=== PATIENT | female | born 1940 | race Caucasian/White ===

== ENCOUNTER → 2016-09-28 | Outpatient (CLI) | payer BC | LOC: BMCIMAGING 07:55 | PROVIDERS: ATTEND Physician Assistant | DX: R10.11 Right upper quadrant pain (principal); K82.4 Cholesterolosis of gallbladder ==

== ENCOUNTER → 2016-10-12 | Outpatient (CLI) | payer BC | LOC: FIMAGING 09:59 | PROVIDERS: ATTEND Physician Assistant | DX: R10.11 Right upper quadrant pain (principal) | CPT/HCPCS: 78227; A9537 ==

== ENCOUNTER → 2017-02-06 | Outpatient (CLI) | payer BC | LOC: FIMAGING 10:41 | PROVIDERS: ATTEND Internal Medicine Hematology & Oncology | DX: Z13.820 Encounter for screening for osteoporosis (principal); M85.80 Other specified disorders of bone density and structure, unspecified site; E07.9 Disorder of thyroid, unspecified; Z78.0 Asymptomatic menopausal state; Z82.62 Family history of osteoporosis; Z79.899 Other long term (current) drug therapy ==

== ENCOUNTER → 2018-01-30 | Outpatient (CLI) | payer BC | LOC: BMCIMAGING 10:03 | PROVIDERS: ATTEND Orthopaedic Surgery | DX: M25.761 Osteophyte, right knee (principal); M25.762 Osteophyte, left knee ==

== ENCOUNTER → 2018-02-05 | Outpatient (CLI) | payer BC | LOC: FIMAGING 08:35 | PROVIDERS: ATTEND Orthopaedic Surgery | DX: Z01.818 Encounter for other preprocedural examination (principal); M17.11 Unilateral primary osteoarthritis, right knee ==

== ENCOUNTER 2018-02-21 12:15 | Inpatient (IN) | payer OTHER, BC ==
[2018-02-28] MEDS ORDERED: ROPIVACAINE 0.2% 80 MG, EPINEPHrine 0.2 MG, KETOROLAC TROMETHAMINE 30 MG, morphINE 10 M... IU ONE (06:00)
[2018-02-28] MEDS ORDERED: TRANEXAMIC ACID 1,000 MG in NS 100 ML IV ONE (06:00)
--- NOTE | 2018-02-28 06:17 | PDHPUP ---
History & Physical Update H&P update statement: This history and physical update is based on an assessment of the patient which was completed after admission or registration (within 24 hours), but prior to the surgery/procedure. H&P update: no change in patient's condition since H&P completed
--- NOTE | 2018-02-28 06:17 | PDIAF ---
- Diagnosis Diagnosis: right knee djd Code Status: Full Code - Medication Management Discharge Medications: Medications to Continue on Transfer Acetaminophen [Tylenol ES 500 mg (*)] PRN PRN 10/03/12 [Last Taken 10/16/12 500] Aspirin EC [Aspirin EC 325 mg (*)] DAILY 10/03/12 [Last Taken 01/05/16] Cholecalciferol Vit D3 [Vitamin D3 (*)] DAILY 10/03/12 [Last Taken 01/05/16] Levothyroxine [Synthroid 50 mcg (*)] DAILY06 10/03/12 [Last Taken 01/05/16] Losartan/Hydrochlorothiazide [Losartan-Hctz 100-25 mg Tab] DAILY 10/03/12 [Last Taken 01/05/16] clonazePAM [klonoPIN (*)] DAILY 10/03/12 [Last Taken 01/05/16] Potassium Chloride [K-Tab ER] DAILY 01/06/16 [Last Taken 01/05/16] Amlodipine Besylate DAILY 02/20/18 [Last Taken Unknown] Atorvastatin Calcium DAILY 02/20/18 [Last Taken Unknown] Omeprazole DAILY 02/20/18 [Last Taken Unknown] Discharge Medications: Refer to the Discharge Home Medication list for PRN reason. - Orders Services needed: Home Care, Physical Therapy Home Care Face to Face: I certify that this patient was under my care and that I had the required [id number] encounter meeting the encounter requirements on the discharge day. My findings support the fact that the patient is homebound as defined in Home Care Face to Face Continued: CMS Chapter 7 Medicare Benefits Manual 30.1.1 , The condition of the patient is such that there exists a normal inability to leave home and consequently, leaving home would require a considerable and taxing effort. Diet Recommendation: no restrictions on diet Diet Texture: Regular Texture Diet Additional Instructions: TOTAL JOINT ARTHROPLASTY DISCHARGE INSTRUCTIONS 1. Your surgeon follows the [facility] protocol for reducing your risk of DVT (blood clots) following surgery. Medication will be ordered to prevent blood clots. A sudden increase in calf pain and/or swelling could indicate a blood clot in your leg. If this occurs, please call your surgeon or his/her assistant property manager. An ultrasound of the leg may be necessary to diagnose a blood clot. If you have conditions that make you a higher risk for blood clots, your surgeon may use more aggressive ways to prevent them. Notify your surgeon if you think you are a high risk for blood clots. 2. Wear your white surgical stockings (TEREZA hose) for 2 weeks. This decreases your swelling and may help prevent blood clots. It is ok to remove TEREZA hose at night time to give your legs a break. 3. Swelling and bruising in the surgical leg is common. If you feel that it is excessive, please notify your surgeon. 4. Elevate your surgical leg with the ankle above the hip several times every day. Please keep the leg straight when you elevate by putting pillows under your foot. Do not put pillows under your knee. This will make being able to fully straighten more difficult. This is uncomfortable, but try to do it as much as possible. 5. For total knee replacements use compressive wrap on your knee for 3-5 days after surgery, then you can discontinue it. 6. Use a walker or crutches for 1-2 weeks. Progress your weight-bearing as tolerated. You may start to use a cane when you feel stable and safe. 7. You will receive physical therapy instructions in the hospital. Continue those exercises at home. There are additional exercises in the total joint booklet you were given before surgery. Outpatient physical therapy will begin 7- 10 days after surgery. Please schedule this in advance. 8. Use ice on your knee at least 3-5 times every day for 30 minutes. This helps reduce pain and swelling. Also use it at night before falling asleep. 9. Leave your surgical dressing in place for 2 weeks. Your dressing is water resistant, but not waterproof. Cover it with Saran Wrap or Dinod-p-Lucv before showering. You may shower as soon as you feel safe entering a shower. If you notice bleeding from your incision 2 or 3 days after surgery, please notify your surgeon. 10. Due to narcotics, decreased activity and altered diet, most patients experience constipation after surgery. Use gzrt-[id number] stool softeners while you are on narcotics. 11. You may drive a car when you are comfortable bearing weight, have good muscular control of your leg and are off narcotics. This usually occurs 2-4 weeks after surgery, depending on which leg was operated on. 12. If there are questions not addressed here, please refer the [facility] book given for more information. If you still have questions, please contact your surgeon s office. 13. If you have a life-threatening emergency, please call 911 and go to the emergency room immediately. For non-life threatening emergencies, please call your physicians office for advice before going to the emergency room. - Follow Up Care Current Providers and Referrals: Steve Puente MD [Medical Doctor] - Rui Gonzalez MD [Primary Care Provider] -
[2018-02-28] MEDS ORDERED: ceFAZolin 2 GM/DEXTROSE 100 ML IV ONE (09:24)
[2018-02-28] MEDS ORDERED: FAMOTIDINE 20 MG TAB PO ONE (09:24)
[2018-02-28] MEDS ORDERED: ACETAMINOPHEN 325 MG TAB PO ONE (09:24)
[2018-02-28] MEDS ORDERED: LR 1,000 ML IV ONE (09:46)
[2018-02-28] MEDS ORDERED: THROMBIN (BOVINE) 5,000 UNIT VIAL TP ONE ×2 (10:59→11:18)
[2018-02-28] MEDS ORDERED: CALCIUM CHLORIDE 1 GM/10 ML INJ ONE ×2 (11:00→11:18)
[2018-02-28] MEDS ORDERED: ceFAZolin 1 GM/5 ML SYR ONE (11:19)
--- NOTE | 2018-02-28 11:33 | PDANEPAE ---
ANE Past Medical History - Cardiovascular History Hx Hypertension: Yes Hx Arrhythmias: No Hx Chest Pain: No Hx Coronary Artery / Peripheral Vascular Disease: No Hx CHF / Valvular Disease: No Hx Palpitations: Yes Cardiovascular History Comment: LBBB - Pulmonary History Hx COPD: No Hx Asthma/Reactive Airway Disease: No Hx Recent Upper Respiratory Infection: No Hx Oxygen in Use at Home: No Hx Sleep Apnea: No Sleep Apnea Screening Result - Last Documented: Negative - Neurologic History Hx Cerebrovascular Accident: No Hx Seizures: No Hx Dementia: No - Endocrine History Hx Diabetes: No Obesity: moderate Endocrine History Comment: hypothyroid - Renal History Hx Renal Disorders: No - Liver History Hx Hepatic Disorders: No Hepatic History Comment: hyoactive galbladder - Neurological & Psychiatric Hx Hx Neurological and Psychiatric Disorders: Yes Neurological / Psychiatric History Comment: anxiety - Cancer History Hx Cancer: Yes Cancer History Comment: breast CA, 2013. melanoma removal - Congenital Disorder History Hx Congenital Disorders: No - GI History GERD: mild Hx Gastrointestinal Disorders: Yes Gastrointestinal History Comment: GERD - Other Health History Other Health History: wears glasses. bilateral hearing aids. states slight balance problem. gets rosacea on forehead - Chronic Pain History Chronic Pain: Yes (legs, knees) - Surgical History Prior Surgeries: bilateral mastectomys, left side lymph node removal. rotator cuff repair right. arthroscopy right knee. right foot/ankle surgery w/ plating. optical tumor removal. tonsillectomy ANE Review of Systems Review of Systems: - Exercise capacity METS (RN): 3 METS ANE Patient History - Allergies Allergies/Adverse Reactions: Sulfa (Sulfonamide Antibiotics) Allergy (Verified 02/20/18 15:18) Hives - Home Medications Home medications: home medication list seen and reviewed Home Medications: Acetaminophen [Tylenol ES 500 mg (*)] PRN PRN 10/03/12 [Last Taken 02/28/18 06: 00] Aspirin EC [Aspirin EC 325 mg (*)] DAILY 10/03/12 [Last Taken 02/27/18] Cholecalciferol Vit D3 [Vitamin D3 (*)] DAILY 10/03/12 [Last Taken 02/27/18] Levothyroxine [Synthroid 50 mcg (*)] DAILY06 10/03/12 [Last Taken 02/28/18 06:00 ] Losartan/Hydrochlorothiazide [Losartan-Hctz 100-25 mg Tab] DAILY 10/03/12 [Last Taken 02/27/18] clonazePAM [klonoPIN (*)] DAILY 10/03/12 [Last Taken 02/28/18 06:00] Potassium Chloride [K-Tab ER] DAILY 01/06/16 [Last Taken 02/28/18 06:00] Amlodipine Besylate DAILY 02/20/18 [Last Taken 02/28/18 06:00] Atorvastatin Calcium DAILY 02/20/18 [Last Taken 02/28/18 06:00] Omeprazole DAILY 02/20/18 [Last Taken 02/28/18 06:00] - NPO status NPO Status: no food or drink >8 hours NPO Since - Liquids (Date): 02/28/18 NPO Since - Liquids (Time): 06:00 NPO Since - Solids (Date): 02/27/18 NPO Since - Solids (Time): 18:00 - Anes Hx Anes Hx: no prior problems - Smoking Hx Smoking Status: Never smoked - Family Anes Hx Family Hx Anesthesia Complications: none ANE Labs/Vital Signs - Vital Signs Blood Pressure: 128/65 Heart Rate: 66 Respiratory Rate: 23 O2 Sat (%): 92 Height: 157.48 cm Weight: 74.843 kg ANE Physical Exam - Airway Neck exam: FROM Mallampati Score: Class 2 Mouth exam: normal dental/mouth exam - Pulmonary Pulmonary: no respiratory distress, no rales or rhonchi, clear to auscultation - Cardiovascular Cardiovascular: regular rate and rhythym, no murmur, rub, or gallop - ASA Status ASA Status: II ANE Anesthesia Plan Anesthesia Plan: spinal Regional Anesthesia: adductor canal FNB
[2018-02-28] MEDS ORDERED: BUPIVACAINE 0.25% 30 ML SDV ONE (11:39)
[2018-02-28] MEDS ORDERED: fentaNYL 100 MCG/2 ML INJ ONE (11:43)
[2018-02-28] MEDS ORDERED: PROPOFOL 200 MG/20 ML VIAL ONE ×2 (11:43→13:03)
[2018-02-28] MEDS ORDERED: DEXAMETHASONE 4 MG/ML VIAL ONE ×2 (12:06)
[2018-02-28] MEDS ORDERED: PHENYLEPHRINE HCL 100 MCG/ML SYR ONE (12:31)
[2018-02-28] MEDS ORDERED: HYDROCODONE/APAP 5/325 TAB PO PRN (13:13)
[2018-02-28] MEDS ORDERED: fentaNYL 100 MCG/2 ML INJ IVP PRN (13:13)
[2018-02-28] MEDS ORDERED: ACETAMINOPHEN 500 MG TAB PO PRN (13:13)
[2018-02-28] MEDS ORDERED: ENALAPRILAT DIHYDRATE 1.25 MG/ML VIAL IVP PRN (13:13)
[2018-02-28] MEDS ORDERED: oxyCODONE IR 5 MG TAB PO PRN ×2 (13:13→13:24)
[2018-02-28] MEDS ORDERED: ONDANSETRON 4 MG/2 ML VIAL IVP PRN ×2 (13:13→13:24)
[2018-02-28] MEDS ORDERED: PROMETHAZINE HCL 25 MG/ML INJ IVP PRN ×2 (13:13→13:24)
[2018-02-28] MEDS ORDERED: LR 500 ML IV PRN (13:13)
[2018-02-28] MEDS ORDERED: LABETALOL HCL 5 MG/ML 20 ML MDV IVP PRN (13:13)
[2018-02-28] MEDS ORDERED: NALOXONE HCL 0.4 MG/ML INJ IVP PRN (13:13)
[2018-02-28] MEDS ORDERED: CYCLOBENZAPRINE 10 MG TAB PO PRN (13:24)
[2018-02-28] MEDS ORDERED: ONDANSETRON DISINTEGRATING 4 MG TAB PO PRN (13:24)
[2018-02-28] MEDS ORDERED: LACTULOSE 20 GM/30 ML UDCUP PO PRN (13:24)
[2018-02-28] MEDS ORDERED: DIPHENOXYLATE/ATROPINE LOMOTIL 1 TAB PO PRN (13:24)
[2018-02-28] MEDS ORDERED: MAGNESIUM HYDROXIDE 30 ML UDCUP PO PRN (13:24)
[2018-02-28] MEDS ORDERED: METOCLOPRAMIDE 10 MG/2 ML VIAL IVP PRN (13:24)
[2018-02-28] MEDS ORDERED: POLYETHYLENE GLYCOL 3350 17 GM PKT PO PRN (13:24)
[2018-02-28] MEDS ORDERED: PROMETHAZINE HCL 25 MG SUPPR PR PRN (13:24)
[2018-02-28] MEDS ORDERED: diphenhydrAMINE 25 MG CAP PO PRN (13:24)
[2018-02-28] MEDS ORDERED: TEMAZEPAM 15 MG CAP PO PRN (13:24)
[2018-02-28] MEDS ORDERED: BISACODYL 10 MG SUPP PR PRN (13:24)
--- NOTE | 2018-02-28 13:24 | POSTOPPROG ---
Post Op Note Date of Operation: 02/28/18 Surgeon: Steve Puente Hydrogeologist: leann Anesthesiologist: derrell Anesthesia: Spinal Pre-op Diagnosis: right knee djd Post-op Diagnosis: same Indication: same Procedure: right tka Inf/Abcess present in the surg proc area at time of surgery?: No Depth: Deep Incisional (Fascial) EBL: 50-100
--- NOTE | 2018-02-28 13:56 | POSTANESTH ---
Post Anesthetic Evaluation Cardiovascular Status: Normal, Stable Respiratory Status: Normal, Stable, Similar to Pre-op Cond. Level of Consciousness/Mental Status: Can Participate in Eval, Mildly Sleepy, Arousable Pain Control: Adequate, Prn Tx Ordered Nausea/Vomiting Control: Adequate, Prn Tx Ordered Complications Possibly Related to Anesthesia: None Noted (Rt adductor canal nerve block performed in PACU.)
[2018-02-28] MEDS: LR 1,000 ML IV SCH ×2 (15:44→20:25)
--- NOTE | 2018-02-28 16:33 | PDMN ---
Medical Necessity Medical necessity: Pt meets INPT criteria per MD and [facility] [facility] Knee Arthroplasty , Total (est. LOS >2 MN, R TKA; age 78; hx vertebral artery dissection, meningioma).
[2018-02-28] MEDS: ACETAMINOPHEN 325 MG TAB PO SCH ×2 (17:24→23:12)
[2018-02-28] MEDS: ceFAZolin 2 GM/DEXTROSE 100 ML IV SCH (20:26)
[2018-02-28] MEDS: FAMOTIDINE 20 MG TAB PO SCH (20:29)
[2018-02-28] MEDS: SENNOSIDES/DOCUSATE SODIUM TAB PO SCH (20:29)
[2018-02-28] MEDS: TRANEXAMIC ACID 650 MG TAB PO SCH (20:37)
[2018-02-28] MEDS: ASPIRIN 325 MG TAB PO SCH (20:38)
[2018-03-01] MEDS ORDERED: NS BOLUS 500 ML (Wide open) IV ONE (00:30)
[2018-03-01] MEDS: TRANEXAMIC ACID 650 MG TAB PO SCH (04:10)
[2018-03-01] MEDS: ceFAZolin 2 GM/DEXTROSE 100 ML IV SCH (04:10)
[2018-03-01] MEDS: ACETAMINOPHEN 325 MG TAB PO SCH ×2 (05:30→11:52)
[2018-03-01] MEDS: SENNOSIDES/DOCUSATE SODIUM TAB PO SCH (08:17)
[2018-03-01] MEDS: ASPIRIN 325 MG TAB PO SCH (08:17)
[2018-03-01] MEDS: FAMOTIDINE 20 MG TAB PO SCH (08:18)
[2018-03-01] MEDS ORDERED: traMADol 50 MG TAB PO PRN (08:58)
--- NOTE | 2018-03-01 09:08 | SOAPPROG ---
SOAP Progress Note Assessment/Plan: Assessment: s/p tka Plan:hypotensive spinal episode yest nervous about going home resume bp meds d/c when cleared by pt 03/01/18 09:06 Subjective: nervous minimal pain no cp or sob akiko po Objective: Vital Signs Temp Pulse Resp BP Pulse Ox 36.6 C 56 L 16 124/54 H 96 03/01/18 08:00 03/01/18 08:00 03/01/18 08:00 03/01/18 08:00 03/01/18 08:00 Laboratory Results 03/01/18 04:30 02/28/18 03/01/18 03/02/18 05:59 05:59 05:59 Intake Total 1560 Output Total 1050 200 Balance 510 -200 dressing intact intact pdf,ehl toes warm and pink neg homans xrays stable anatomic alignement no fx or lucency ICD10 Worksheet Patient Problems: Problems Problem Status Onset Pre-syncope Acute Ventricular trigeminy Acute
[2018-03-01 11:47] VITALS: BP 119/51
--- NOTE | 2018-03-01 14:48 | ASMTCMCOM ---
CM Note CM Note Notes: Pt s/p planned OA of knee. Pt resides with spouse, requests [facility] PT. Orders to be obtained via iMER. Pt address/phone verified. Date Signed: 03/01/2018 02:47 PM Electronically Signed By:SERGO Vaughan
--- NOTE | 2018-03-01 14:49 | ASDISCHSUM ---
Discharge Information Plan Status:Home with Home Health Medically Cleared to Leave: Discharge Date:03/01/2018 01:28 PM CM D/C Disposition:Home Health Service ADT D/C Disposition:Home Health Service Projected Discharge Date:03/01/2018 11:00 AM Transportation at D/C: Discharge Delay Reason: Follow-Up Date:03/01/2018 11:00 AM Discharge Slot: Final Diagnosis: Placement Information Referral Type:*Home Health Care Services Referral ID:[id number] Provider Name:[facility] Address 1:[address] Address 2: City:[place] Selection Factors: State:[place] Patient Contact Information Contact Name:AMIE Relationship: Address:[address] City:[place] Alternate Phone: State/Zip Code:[place] [address] Email: Financial Information Financial Class:Medicare Primary Plan Desc:MEDICARE INPATIENT Primary Plan Number:[id number] Secondary Plan Desc:Adapx [facility] Secondary Plan Number:[id number] Assessment Information LACE LACE Length of stay for Answers: 2 days current admission Acuity / Level of Answers: Yes Care: Did the patient have an inpatient admission? Comorbidities - select Answers: Opioid dependence all that apply / Chronic pain Other Notes: HTN; Hypothyroid; GERD # of Emergency department Answers: 0 visits in the last 6 months Social determinants Answers: Mental health diagnosis (anxiety, depression, pers onality disorders, etc.) Score: 13 Date Signed: 03/01/2018 02:48 PM Electronically Signed By:SERGO Vaughan [facility] CM Progress Note CM Note CM Note Notes: Pt s/p planned OA of knee. Pt resides with spouse, requests [facility] PT. Orders to be obtained via theBench. Pt address/phone verified. Date Signed: 03/01/2018 02:47 PM Electronically Signed By:SERGO Vaughan Intervention Information
== END 2018-03-01 13:28 | disposition home health service (06) | DRG 470 ==
LOC: F3N 02-28 09:03
PROVIDERS: ADMIT Orthopaedic Surgery; ATTEND Orthopaedic Surgery
DX: M17.11 Unilateral primary osteoarthritis, right knee (principal); I10 Essential (primary) hypertension; E03.9 Hypothyroidism, unspecified; Z85.3 Personal history of malignant neoplasm of breast; Z90.13 Acquired absence of bilateral breasts and nipples
CPT/HCPCS: 97110-GP; 97116-GP; 97161-GP; 97165-GO; G8978-GP-CK; G8979-GP-CI; G8987-GO-CI; G8988-GO-CI; G8989-GO-CI; J0171; J0690; J1100; J1885; J2270; J2370; J2405; J2704; J2795; J3010

== ENCOUNTER 2018-03-02 13:32 | Emergency (ER) | payer OTHER, BC ==
--- NOTE | 2018-03-02 13:56 | EDPHY ---
HPI/HX/ROS/PE/MDM Narrative: CHIEF COMPLAINT: Postsurgical bleeding to right knee HPI: This patient is an 78 year old female s/p knee replacement with Dr. Puente last . She was discharged home yesterday. After discharge, she noted more drainage and increased bleeding. She contacted the communications systems engineer provider yesterday, who recommended wrapping the surgical site in gauze. The bleeding has persisted. She additionally complains of increased pain to the surgical site. She has been taking her pain medication as prescribed. Her most recent dose was around 12:00 today. She is not anticoagulated. She had been taking daily ASA but discontinued this perioperatively. She denies fever, chest pain, shortness of breath, or other associated symptoms. REVIEW OF SYSTEMS: A comprehensive 10 system review of systems is otherwise negative aside from elements mentioned in the history of present illness and medical decision making. PMH: No history of clotting disorder. Recent knee replacement. SOCIAL HISTORY: . No drug abuse. Lives in [place]. Retired. PHYSICAL EXAM: General:Patient is alert, in no acute distress. ENT:Eyes are normal to inspection. ENT inspection normal. Neck: Normal inspection. Full range of motion. Respiratory:No respiratory distress. Breath sounds normal bilaterally. Cardiovascular: Regular rate and rhythm. Strong peripheral pulses. Normal cap refill. Abdomen:The abdomen is nontender to palpation. There are no peritoneal signs. There are normal bowel sounds. Back: Normal to inspection. No tenderness to palpation. Skin: Normal color. No rash. Warm and dry. Extremities: RLE: Anterior knee incision is intact with zipper-style sutures holding wound well-approximated. Extensive clotted blood is present underneath the bandage, but this is easily removed and no active bleeding is present. Neuro: Oriented x3. Normal motor function. Normal sensory function. ED Course: Wound was observed for approximately an hour with some mild oozing. I consulted Dr. Black, who is covering for Dr. Puente at 2:30pm. Dr. Black had apparently spoken to patient last night. He recommends re-dressing wound and discharging her - he will notify Dr. Puente. Patient informed and is somewhat that surgeon has not seen her, but is willing to proceed with plan. I see no signs of infection or concerning post-op bleed at this time. Patient complains of pain but has only taken a total of three tabs of Percocet since surgery, so certainly has a lot more therapeutic room available. - Data Points Medications Given: Discontinued Medications Oxycodone/Acetaminophen (Percocet 5/325) 1 tab PO EDNOW ONE Stop: 03/02/18 14:31 Last Admin: 03/02/18 14:33 Dose: 1 tab General Time Seen by Provider: 03/02/18 13:46 Initial Vital Signs: Initial Vital Signs Temperature (C) 37.2 C 03/02/18 13:36 Respiratory Rate 20 03/02/18 13:36 Blood Pressure 147/53 H 03/02/18 13:36 O2 Sat (%) 94 03/02/18 13:36 O2 Delivery Mode Room Air Allergies/Adverse Reactions: Sulfa (Sulfonamide Antibiotics) Allergy (Verified 02/20/18 15:18) Hives Home Medications: Medication Instructions Recorded Aspirin [Aspirin 81mg (*)] 81 mg PO BID 02/28/18 Atorvastatin Calcium [Lipitor 40 40 mg PO DAILY 02/28/18 mg (*)] Cholecalciferol (Vitamin D3) 2,000 unit PO DAILY 02/28/18 [Vitamin D3] Levothyroxine [Synthroid 50 mcg 50 mcg PO DAILY06 02/28/18 (*)] Losartan/Hydrochlorothiazide 1 each PO DAILY 02/28/18 [Losartan-Hctz 100-25 mg Tab] Mometasone Furoate [Elocon Cream 1 jyothi TP BID 02/28/18 (*)] Omeprazole 20 mg PO DAILY 02/28/18 Potassium Cl [Klor-Con 20 meq (*)] 20 meq PO DAILY 02/28/18 amLODIPine BESYLATE [Amlodipine 5 mg PO DAILY 02/28/18 Besylate] clonazePAM [klonoPIN (*)] 1 mg PO DAILY PRN 02/28/18 Aspirin [Aspirin 325 mg (*)] 325 mg PO DAILY tab 03/01/18 oxyCODONE IR [Oxycodone Ir (*)] 5 - 10 mg PO Q3HRS PRN #50 tab 03/01/18 traMADol [Ultram 50 mg (*)] 50 mg PO Q6HRS PRN #50 tab 03/01/18 Departure - Departure Clinical Impression: Bleeding Instructions: Postoperative Bleeding (ED) Additional Instructions: Keep wound well-wrapped. Contact Dr. Repine for further care. Return to the ED for fever, worsening bleeding or other concerns. Take pain medication as prescribed. Referrals: Rui Gonzalez MD [Primary Care Provider] - As per Instructions Report Scribed for: Fareed Bowden Report Scribed by: Sara Healy Date of Report: 03/02/18 Time of Report: 15:21 Physician Review and Approval Statement: Portions of this note were transcribed by an ED scribe. I personally performed the history, physical exam, and medical decision making; and confirm the accuracy of the information in the transcribed note.
[2018-03-02] MEDS ORDERED: OXYCODONE/APAP 5/325 TAB PO ONE (14:30)
[2018-03-02 15:11] VITALS: BP 140/74
== END 2018-03-02 15:11 | disposition home or self-care (01) ==
DX: M96.830 Postprocedural hemorrhage of a musculoskeletal structure following a musculoskeletal system procedure (principal); Z96.651 Presence of right artificial knee joint

== ENCOUNTER → 2018-04-10 | Outpatient (CLI) | payer OTHER, BC | LOC: BMCIMAGING 12:41 | PROVIDERS: ATTEND Physician Assistant | DX: Z47.1 Aftercare following joint replacement surgery (principal); Z96.651 Presence of right artificial knee joint ==

== ENCOUNTER → 2018-05-27 | Outpatient (CLI) | payer BC | LOC: BMCIMAGING 09:48 | PROVIDERS: ATTEND Orthopaedic Surgery | DX: Z47.1 Aftercare following joint replacement surgery (principal); Z96.651 Presence of right artificial knee joint ==

== ENCOUNTER → 2018-06-20 | Outpatient (CLI) | payer BC | LOC: BMCIMAGING 10:16 | PROVIDERS: ATTEND Podiatrist Foot & Ankle Surgery | DX: M21.42 Flat foot [pes planus] (acquired), left foot (principal); M21.41 Flat foot [pes planus] (acquired), right foot; M19.072 Primary osteoarthritis, left ankle and foot; M77.32 Calcaneal spur, left foot; M77.31 Calcaneal spur, right foot ==

== ENCOUNTER → 2018-08-16 | Outpatient (CLI) | payer BC | LOC: FIMAGING 09:35 | PROVIDERS: ATTEND Physical Medicine & Rehabilitation | DX: M51.16 Intervertebral disc disorders with radiculopathy, lumbar region (principal); M51.35 Other intervertebral disc degeneration, thoracolumbar region; M51.37 Other intervertebral disc degeneration, lumbosacral region; M51.34 Other intervertebral disc degeneration, thoracic region; M46.96 Unspecified inflammatory spondylopathy, lumbar region; M46.94 Unspecified inflammatory spondylopathy, thoracic region; M46.97 Unspecified inflammatory spondylopathy, lumbosacral region; M48.061 Spinal stenosis, lumbar region without neurogenic claudication; M48.05 Spinal stenosis, thoracolumbar region; M48.07 Spinal stenosis, lumbosacral region ==

== ENCOUNTER → 2018-08-28 | Outpatient (CLI) | payer BC | LOC: BMCIMAGING 10:23 | PROVIDERS: ATTEND Orthopaedic Surgery | DX: Z47.1 Aftercare following joint replacement surgery (principal); Z96.641 Presence of right artificial hip joint ==